=== PATIENT | female | born 1995 | race Caucasian/White ===

== ENCOUNTER 2017-12-30 03:41 | Inpatient (IN) | payer BC ==
[2017-12-30] MEDS ORDERED: Misoprostol 200 MCG Tab PO PRN (09:27)
[2017-12-30] MEDS ORDERED: Tranexamic Acid 1,000 MG in Sodium Chloride 0.9% 100 ML IV PRN (09:27)
[2017-12-30] MEDS ORDERED: Lidocaine 1% 50 ML MDV INJECT PRN (09:27)
[2017-12-30] MEDS ORDERED: Sodium Chloride 0.9% 10 ML Syringe FLUSH PRN (09:27)
[2017-12-30] MEDS ORDERED: Sodium Chloride 0.9% 2.5 ML Syringe FLUSH PRN (09:27)
[2017-12-30] MEDS ORDERED: Butorphanol 1 MG/ML SDV IVPUSH PRN (09:27)
[2017-12-30] MEDS ORDERED: Carboprost Tromethamine 250 MCG/1 ML Amp IM PRN (09:27)
[2017-12-30] MEDS ORDERED: Methylergonovine 0.2 MG/1 ML Amp IM PRN (09:27)
[2017-12-30] MEDS ORDERED: Nalbuphine 10 MG/1 ML Vial IVPUSH PRN (09:27)
[2017-12-30] MEDS ORDERED: Water For Irrigation,Sterile 1,000 ML Container IRR PRN (09:27)
[2017-12-30] MEDS ORDERED: Oxytocin/0.9 % Sodium Chloride 30 UNIT/500 ML BAG IV SCH ×2 (09:30→17:15)
--- NOTE | 2017-12-30 09:55 | PCM.LDHP ---
L&D History of Present Illness - General Date of Service: 12/30/17 Admit Problem/Dx: Patient Status Order with Admit Dx/Problem 12/30/17 03:54 Patient Status [ADT] Routine 12/30/17 09:27 Patient Status [ADT] Routine Admission Diagnosis/Problem Admission Diagnosis/Problem - planned Source of Information: Patient History Limitations: Reports: No Limitations - History of Present Illness Improves with: Reports: None Worsens with: Reports: None Associated Symptoms: Reports: N - Related Data Allergies/Adverse Reactions: Allergies Allergy/AdvReac Type Severity Reaction Status Date / Time No Known Allergies Allergy Verified 12/30/17 03:50 Home Medications: Home Meds Jur226/FA/Omega3/Dha/Fish Oil [ Gummies] 1 each PO 12/30/17 [History] H&P Review of Systems - Review of Systems: Review Of Systems: See Below General: Reports: No Symptoms HEENT: Reports: No Symptoms Pulmonary: Reports: No Symptoms Cardiovascular: Reports: No Symptoms Gastrointestinal: Reports: No Symptoms Genitourinary: Reports: No Symptoms Musculoskeletal: Reports: No Symptoms Skin: Reports: No Symptoms Psychiatric: Reports: No Symptoms Neurological: Reports: No Symptoms Hematologic/Lymphatic: Reports: No Symptoms Immunologic: Reports: No Symptoms L&D Exam - Exam Exam: See Below - Vital Signs Weight: 72.121 kg - OB Specific Fundal Height In cm: 37 Contraction Intensity: Moderate Movement: Active Heart Tones: Present Presentation: Vertex - Arnold Score Arnold Score Cervix Position: Anterior Arnold Score Consistency: Soft Arnold Score Effacement: 51-70% Arnold Score Dilation: > 5 cm Arnold Score Infant's Station: -2 Arnold Score Total: 10 - Exam General: Alert, Oriented HEENT: PERRLA, Conjunctiva Clear, EACs Clear, EOMI, Hearing Intact, Mucosa Moist & [place], Nares Patent, Normal Nasal Septum, Posterior Pharynx Clear, TMs Clear Neck: Supple, Trachea Midline Lungs: Clear to Auscultation, Normal Respiratory Effort Cardiovascular: Regular Rate, Regular Rhythm GI/Abdominal Exam: Normal Bowel Sounds, Soft, Non-Tender, No Organomegaly, No Distention, No Abnormal Bruit, No Mass, Pelvis Stable Rectal Exam: Normal Exam, Normal Rectal Tone Genitourinary: Normal external exam, Normal bimanual exam, Normal speculum exam Back Exam: Normal Inspection, Full Range of Motion Extremities: Normal Inspection, Normal Range of Motion, Non-Tender, No Pedal Edema, Normal Capillary Refill Skin: Warm, Dry, Intact Neurological: Cranial Nerves Intact, Reflexes Equal Bilateral Psychiatric: Alert, Normal Affect, Normal Mood Problem List Initiated/Reviewed/Updated: Yes Orders Last 24hrs: Active Orders 24 hr Category Date Time Status Patient Status [ADT] Routine ADT 12/30/17 09:27 Active Heart Tones [RC] CONTINUOUS Care 12/30/17 09:27 Active Non Stress Test [RC] PER UNIT ROUTINE Care 12/30/17 03:54 Active Non Stress Test [RC] PER UNIT ROUTINE Care 12/30/17 09:27 Active May Shower [RC] ASDIRECTED Care 12/30/17 09:27 Active Notify Provider [RC] PRN Care 12/30/17 09:27 Active Up ad Dipti [RC] ASDIRECTED Care 12/30/17 03:54 Active Up ad Dipti [RC] ASDIRECTED Care 12/30/17 09:27 Active Vaginal Exam [RC] Click to Edit Care 12/30/17 03:54 Active Vaginal Exam [RC] PRN Care 12/30/17 09:27 Active Vital Signs [RC] PER UNIT ROUTINE Care 12/30/17 03:54 Active Vital Signs [RC] PER UNIT ROUTINE Care 12/30/17 09:27 Active Clear Liquid Diet [DIET] Diet 12/30/17 Lunch Active CBC W/O DIFF,HEMOGRAM [HEME] Routine Lab 12/30/17 09:27 Ordered TYPE AND SCREEN [BBK] Routine Lab 12/30/17 09:27 Ordered Butorphanol [Stadol] Med 12/30/17 09:27 Active 1 mg IVPUSH Q1H PRN Carboprost Tromethamine [Hemabate DS] Med 12/30/17 09:27 Active 250 mcg IM ASDIRECTED PRN Lactated Ringers [Ringers, Lactated] 1,000 ml Med 12/30/17 09:30 Active IV ASDIRECTED Lidocaine 1% [Xylocaine 1%] Med 12/30/17 09:27 Active 50 ml INJECT .ONCE PRN Methylergonovine [Methergine] Med 12/30/17 09:27 Active 0.2 mg IM ASDIRECTED PRN Misoprostol [Cytotec] Med 12/30/17 09:27 Active 200 mcg PO .ONCE PRN Nalbuphine [Nubain] Med 12/30/17 09:27 Active 10 mg IVPUSH Q1H PRN Oxytocin/0.9 % Sodium Chloride [Oxytocin 30 Unit/500 ML Med 12/30/17 09:30 Active -NS] 30 unit in 500 ml IV TITRATE Sodium Chloride 0.9% [Saline Flush] Med 12/30/17 09:27 Active 10 ml FLUSH ASDIRECTED PRN Sodium Chloride 0.9% [Saline Flush] Med 12/30/17 09:27 Active 2.5 ml FLUSH ASDIRECTED PRN Tranexamic Acid [Cyklokapron] 1,000 mg Med 12/30/17 09:27 Active Sodium Chloride 0.9% [Normal Saline] 100 ml IV ONETIME Water For Irrigation,Sterile [Sterile Water for Med 12/30/17 09:27 Active Irrigation] 1,000 ml IRR ASDIRECTED PRN Scalp Electrode [WOMSER] Per Unit Routine Oth 12/30/17 09:27 Ordered Peripheral IV Insertion Adult [OM.PC] Routine Oth 12/30/17 09:27 Ordered Resuscitation Status Routine Resus Stat 12/30/17 03:54 Ordered Medication Orders Butorphanol Tartrate (Stadol) 1 mg IVPUSH Q1H PRN PRN Reason: Pain Carboprost Tromethamine (Hemabate Ds) 250 mcg IM ASDIRECTED PRN PRN Reason: Post Hemorrhage Tranexamic Acid 1,000 mg/ (Sodium Chloride) 110 mls @ 660 mls/hr IV ONETIME PRN PRN Reason: Bleeding Lactated Ringer's (Ringers, Lactated) 1,000 mls @ 150 mls/hr IV ASDIRECTED DON Oxytocin/Sodium Chloride (Oxytocin 30 Unit/500 Ml-Ns) 30 unit in 500 mls @ 500 mls/hr IV TITRATE DON Lidocaine HCl (Xylocaine 1%) 50 ml INJECT .ONCE PRN PRN Reason: Laceration repair Methylergonovine Maleate (Methergine) 0.2 mg IM ASDIRECTED PRN PRN Reason: Post Hemorrhage Misoprostol (Cytotec) 200 mcg PO .ONCE PRN PRN Reason: Post Hemorrhage Nalbuphine HCl (Nubain) 10 mg IVPUSH Q1H PRN PRN Reason: Pain (severe 7-10) Sodium Chloride (Saline Flush) 10 ml FLUSH ASDIRECTED PRN PRN Reason: Keep Vein Open Sodium Chloride (Saline Flush) 2.5 ml FLUSH ASDIRECTED PRN PRN Reason: Keep Vein Open Sterile Water (Sterile Water For Irrigation) 1,000 ml IRR ASDIRECTED PRN PRN Reason: delivery Assessment/Plan Comment:: IUP 39wks + in early active labor.
[2017-12-30] MEDS: Lactated Ringers 1,000 ML IV SCH ×2 (15:41→17:42)
[2017-12-30] MEDS ORDERED: fentaNYL 100 MCG/2 ML SDV ONE (15:44)
[2017-12-30] MEDS ORDERED: Bupivacaine 0.25% 10 ML SDV ONE ×2 (15:45→19:45)
--- NOTE | 2017-12-30 16:44 | PCM.PREANE ---
Preanesthetic Assessment - Anesthesia/Transfusion/Family Hx Anesthesia History: Prior Anesthesia Without Reaction Family History of Anesthesia Reaction: No Transfusion History: No Prior Transfusion(s) - Review of Systems General: No Symptoms Pulmonary: No Symptoms Cardiovascular: No Symptoms Gastrointestinal: No Symptoms Neurological: No Symptoms Other: Reports: None - Physical Assessment NPO Status Date: 12/30/17 NPO Status Time: 16:00 (Clear Liquids) Pulse: 114 O2 Sat by Pulse Oximetry: 99 Respiratory Rate: 20 Blood Pressure: 134/86 Height: 1.57 m Weight: 72.121 kg ASA Class: 2 Mental Status: Alert & Oriented x3 Airway Class: Mallampati = 1 Dentition: Reports: Normal Dentition ROM/Head Extension: Full Lungs: Clear to Auscultation Cardiovascular: Regular Rate (. Requests epidural, discussed, ? answered, understands risks and benefits. Accepts. Permit signed) - Lab Values: Laboratory Last Values WBC 14.59 K/uL (4.0-11.0) H 12/30/17 09:44 RBC 4.09 M/uL (4.30-5.90) L 12/30/17 09:44 Hgb 11.0 g/dL (12.0-16.0) L 12/30/17 09:44 Hct 33.5 % (36.0-46.0) L 12/30/17 09:44 MCV 81.9 fL (80.0-98.0) 12/30/17 09:44 MCH 26.9 pg (27.0-32.0) L 12/30/17 09:44 MCHC 32.8 g/dL (31.0-37.0) 12/30/17 09:44 RDW Std Deviation 40.8 fl (28.0-62.0) 12/30/17 09:44 RDW Coeff of Chantel 14 % (11.0-15.0) 12/30/17 09:44 Plt Count 263 K/uL (150-400) 12/30/17 09:44 MPV 11.30 fL (7.40-12.00) 12/30/17 09:44 Nucleated RBC % 0.0 /100WBC 12/30/17 09:44 Nucleated RBCs # 0 K/uL 12/30/17 09:44 Blood Type O POSITIVE 12/30/17 09:44 Antibody Screen NEGATIVE 12/30/17 09:44 - Allergies Allergies/Adverse Reactions: Allergies Allergy/AdvReac Type Severity Reaction Status Date / Time No Known Allergies Allergy Verified 12/30/17 03:50 PreAnesthesia Questionnaire Gastrointestinal History: Reports: GERD Psychiatric History: Reports: Anxiety, Depression - Past Surgical History HEENT Surgical History: Reports: Oral Surgery - SUBSTANCE USE Smoking Status *Q: Never Smoker Second Hand Smoke Exposure: No - HOME MEDS Home Medications: Home Meds [id number]/FA/Omega3/Dha/Fish Oil [ Gummies] 1 each PO 12/30/17 [History] - CURRENT (IN HOUSE) MEDS Current Meds: Current Medications Butorphanol Tartrate (Stadol) 1 mg IVPUSH Q1H PRN PRN Reason: Pain Carboprost Tromethamine (Hemabate Ds) 250 mcg IM ASDIRECTED PRN PRN Reason: Post Hemorrhage Tranexamic Acid 1,000 mg/ (Sodium Chloride) 110 mls @ 660 mls/hr IV ONETIME PRN PRN Reason: Bleeding Lactated Ringer's (Ringers, Lactated) 1,000 mls @ 150 mls/hr IV ASDIRECTED DON Oxytocin/Sodium Chloride (Oxytocin 30 Unit/500 Ml-Ns) 30 unit in 500 mls @ 500 mls/hr IV TITRATE DON Lidocaine HCl (Xylocaine 1%) 50 ml INJECT .ONCE PRN PRN Reason: Laceration repair Methylergonovine Maleate (Methergine) 0.2 mg IM ASDIRECTED PRN PRN Reason: Post Hemorrhage Misoprostol (Cytotec) 200 mcg PO .ONCE PRN PRN Reason: Post Hemorrhage Nalbuphine HCl (Nubain) 10 mg IVPUSH Q1H PRN PRN Reason: Pain (severe 7-10) Sodium Chloride (Saline Flush) 10 ml FLUSH ASDIRECTED PRN PRN Reason: Keep Vein Open Sodium Chloride (Saline Flush) 2.5 ml FLUSH ASDIRECTED PRN PRN Reason: Keep Vein Open Sterile Water (Sterile Water For Irrigation) 1,000 ml IRR ASDIRECTED PRN PRN Reason: delivery Discontinued Medications Bupivacaine HCl (Sensorcaine-Mpf 0.25%) Confirm Administered Dose 10 ml .ROUTE .STK-MED ONE Stop: 12/30/17 15:46 Fentanyl (Sublimaze) Confirm Administered Dose 100 mcg .ROUTE .STK-MED ONE Stop: 12/30/17 15:45 Fentanyl/Bupivacaine HCl (Hmlbiymv-Poqka-Ry 2 Mcg/Ml-0.125%) Confirm Administered Dose 100 mls @ as directed EP .STK-MED ONE Stop: 12/30/17 15:45
[2017-12-30] MEDS ORDERED: Terbutaline 1 MG/ML SDV SUBCUT PRN (17:03)
--- NOTE | 2017-12-30 17:12 | PCM.PRNOTE ---
- Free Text/Narrative Note: 22 y/o requests labor epidural. Dilated with active contractions. Discussed, ? answered. Wishes to procede. Procedure uneventful. Prep: X3 with betadine Skin Local: 4 ml 1% Lidocaine @ L3-4 Needle: 17g touhy 16:05 Space: ID'd via JESSIKA with air/NaCl 16:07 Catheter to 9 cm without issues. 16:08 Test dose: 4 ml 1.5% Lidocaine with 1:200k epi 16:11 TEST NEGATIVE Occlusive dressing applied. Bolus dose: Bupivicaine 0.25% 6ml + Fentanyl 100 mcg Continuous infusion Bupivicaine 0.125% + Fentanyl 1 mcg/ml @ 8ml/hr/6ml bolus q12m/28ml max/hr Significant decrease in discomfort by 16:30. No problems noted post
--- NOTE | 2017-12-30 20:35 | PCM.SN ---
- Free Text/Narrative Note: Called to OB for Epidural occlusion. Catheter checked-patent. Filter patent. No tubing kinks. Reloaded cassette. Bolus now functioning. Increased pain due to down time. Bupivicaine 0.25% 4ml bolus. Pain decreased. No problems post.
[2017-12-30] MEDS ORDERED: Docusate Sodium 100 MG Cap PO PRN (23:20)
[2017-12-30] MEDS ORDERED: Witch Hazel Medicated Pads 40/Jar TOP PRN (23:20)
[2017-12-30] MEDS ORDERED: Benzocaine/Menthol 20%-0.5% Spray 78 GM Cannister TOP PRN (23:20)
[2017-12-30] MEDS ORDERED: Acetaminophen 500 MG Tab PO PRN ×2 (23:20)
[2017-12-30] MEDS ORDERED: Ibuprofen 400 MG Tab PO PRN (23:20)
[2017-12-30] MEDS ORDERED: Bisacodyl 10 MG Supp RECTAL PRN (23:20)
--- NOTE | 2017-12-30 23:50 | OR ---
SURGEON: Mumtaz Skaggs MD DATE OF PROCEDURE: Ms. Jessica Guajardo is a 22-year-old patient. She is primigravida. She is followed in our office in this , she is primarily by Cari Noe CNM. She had no complication prenatally. Her GBS status was negative. The patient is admitted in active labor. At the time of admission, she was 5 cm, 80% vertex, and with bulging bag of water. The patient had regular contraction. heart rate was category I. She had artificial rupture of the membrane by me at 3:30 in the afternoon of 12/30/2017, clear fluid. The patient had epidural anesthesia for labor analgesia. The patient continued to progress through labor without any problem. She was able to accomplish normal spontaneous vaginal delivery of a male fetus. scores reported to be 8 and 9 and the weight . The placenta delivered spontaneous, complete, and intact. The patient had a second-degree perineal laceration. After infiltrating the area with 1% xylocaine, the laceration was repaired with 3-0 Vicryl in layer without any problem. Estimated blood loss was 350 mL to 400 mL. There was no complication in labor or in the . heart rate was category 1 through the entire process of labor. BRISSA / [id number] /[id number]
[2017-12-31] MEDS: Ibuprofen 800 MG Tab PO PRN ×3 (00:18→18:52)
[2017-12-31] MEDS ORDERED: Ondansetron 4 MG/2 ML SDV IVPUSH ONE (01:09)
--- NOTE | 2017-12-31 10:01 | PCM.PNPP ---
- General Info Date of Service: 12/31/17 Functional Status: Reports: Pain Controlled - Review of Systems General: Reports: No Symptoms HEENT: Reports: No Symptoms Pulmonary: Reports: No Symptoms Cardiovascular: Reports: No Symptoms Gastrointestinal: Reports: No Symptoms Genitourinary: Reports: No Symptoms Musculoskeletal: Reports: No Symptoms Skin: Reports: No Symptoms Neurological: Reports: No Symptoms Psychiatric: Reports: No Symptoms - General Info Date of Service: 12/31/17 - Patient Data Vital Signs - Most Recent: Last Vital Signs Temp 36.9 C 12/31/17 07:28 Pulse 111 H 12/31/17 07:28 Resp 16 12/31/17 07:28 BP 116/82 12/31/17 07:28 Pulse Ox 94 L 12/31/17 07:28 Weight - Most Recent: 72.121 kg I&O - Last 24 Hours: Intake & Output 12/30/17 12/31/17 12/31/17 22:59 06:59 14:59 Intake Total 500 Balance 500 Lab Results - Last 24 Hours: Laboratory Results - last 24 hr 12/30/17 12/30/17 12/31/17 Range/Units 09:44 09:44 06:00 WBC 14.59 H (4.0-11.0) K/uL RBC 4.09 L (4.30-5.90) M/uL Hgb 11.0 L 10.4 L (12.0-16.0) g/dL Hct 33.5 L 32.3 L (36.0-46.0) % MCV 81.9 (80.0-98.0) fL MCH 26.9 L (27.0-32.0) pg MCHC 32.8 (31.0-37.0) g/dL RDW Std Deviation 40.8 (28.0-62.0) fl RDW Coeff of Chantel 14 (11.0-15.0) % Plt Count 263 (150-400) K/uL MPV 11.30 (7.40-12.00) fL Nucleated RBC % 0.0 /100WBC Nucleated RBCs # 0 K/uL Blood Type O POSITIVE Antibody Screen NEGATIVE Med Orders - Current: Current Medications Acetaminophen (Tylenol Extra Strength) 500 mg PO Q4H PRN PRN Reason: Pain Acetaminophen (Tylenol Extra Strength) 1,000 mg PO Q4H PRN PRN Reason: Pain Benzocaine/Menthol (Dermoplast Pain Relief 20%-0.5% Sherman) 78 gm TOP ASDIRECTED PRN PRN Reason: Perineal Comfort Measure Bisacodyl (Dulcolax) 10 mg RECTAL .ONCE PRN PRN Reason: Constipation Butorphanol Tartrate (Stadol) 1 mg IVPUSH Q1H PRN PRN Reason: Pain Carboprost Tromethamine (Hemabate Ds) 250 mcg IM ASDIRECTED PRN PRN Reason: Post Hemorrhage Docusate Sodium (Colace) 100 mg PO BID PRN PRN Reason: Constipation Emollient Ointment (Lansinoh Hpa) 0 gm TOP ASDIRECTED PRN PRN Reason: Sore Nipples Tranexamic Acid 1,000 mg/ (Sodium Chloride) 110 mls @ 660 mls/hr IV ONETIME PRN PRN Reason: Bleeding Lactated Ringer's (Ringers, Lactated) 1,000 mls @ 150 mls/hr IV ASDIRECTED DON Last Admin: 12/30/17 17:42 Dose: 500 mls/hr Oxytocin/Sodium Chloride (Oxytocin 30 Unit/500 Ml-Ns) 30 unit in 500 mls @ 500 mls/hr IV TITRATE DON Oxytocin/Sodium Chloride (Oxytocin 30 Unit/500 Ml-Ns) 30 unit in 500 mls @ 2 mls/hr IV TITRATE DON; Protocol Last Titration: 12/30/17 22:14 Dose: 8 munits/min, 8 mls/hr Ibuprofen (Motrin) 400 mg PO Q4H PRN PRN Reason: Pain Ibuprofen (Motrin) 800 mg PO Q6H PRN PRN Reason: Pain Last Admin: 12/31/17 00:18 Dose: 800 mg Lidocaine HCl (Xylocaine 1%) 50 ml INJECT .ONCE PRN PRN Reason: Laceration repair Last Admin: 12/30/17 23:12 Dose: 50 ml Methylergonovine Maleate (Methergine) 0.2 mg IM ASDIRECTED PRN PRN Reason: Post Hemorrhage Misoprostol (Cytotec) 200 mcg PO .ONCE PRN PRN Reason: Post Hemorrhage Nalbuphine HCl (Nubain) 10 mg IVPUSH Q1H PRN PRN Reason: Pain (severe 7-10) Oxycodone HCl (Oxycodone) 5 mg PO Q2H PRN PRN Reason: Pain Sodium Chloride (Saline Flush) 10 ml FLUSH ASDIRECTED PRN PRN Reason: Keep Vein Open Sodium Chloride (Saline Flush) 2.5 ml FLUSH ASDIRECTED PRN PRN Reason: Keep Vein Open Sterile Water (Sterile Water For Irrigation) 1,000 ml IRR ASDIRECTED PRN PRN Reason: delivery Terbutaline Sulfate (Brethine) 0.25 mg SUBCUT ASDIRECTED PRN PRN Reason: Tacysystole Witch Bruna (Tucks) 1 pad TOP ASDIRECTED PRN PRN Reason: comfort care Discontinued Medications Bupivacaine HCl (Sensorcaine-Mpf 0.25%) Confirm Administered Dose 10 ml .ROUTE .STK-MED ONE Stop: 12/30/17 15:46 Last Admin: 12/30/17 20:19 Dose: Not Given Bupivacaine HCl (Sensorcaine-Mpf 0.25%) Confirm Administered Dose 10 ml .ROUTE .STK-MED ONE Stop: 12/30/17 19:46 Last Admin: 12/30/17 20:20 Dose: Not Given Fentanyl (Sublimaze) Confirm Administered Dose 100 mcg .ROUTE .STK-MED ONE Stop: 12/30/17 15:45 Last Admin: 12/30/17 20:19 Dose: Not Given Fentanyl/Bupivacaine HCl (Rwsqpfmq-Ddrwt-Px 2 Mcg/Ml-0.125%) Confirm Administered Dose 100 mls @ as directed EP .STK-MED ONE Stop: 12/30/17 15:45 Last Admin: 12/30/17 20:19 Dose: Not Given Ondansetron HCl (Zofran) 4 mg IVPUSH ONETIME ONE Stop: 12/31/17 01:10 Last Admin: 12/31/17 01:20 Dose: 4 mg - Interaction Infant Disposition, : in Room with Family Infant Interaction: Holding Infant Feeding: Attempted ; Nursed Fair/Poor Support Person: , Mother, Friend - Recovery Exam Fundal Tone: Firm Fundal Level: At Umbilicus Fundal Placement: Midline Lochia Amount: Small Lochia Color: Rubra/Red Perineum Description: Intact, Minimal Bruising/Swelling Episiotomy/Laceration: Approximated Urinary Elimination: Other (see below) Other Urinary Elimination, : due to void - Exam General: Alert, Oriented HEENT: Pupils Equal Neck: Supple Lungs: Clear to Auscultation, Normal Respiratory Effort Cardiovascular: Regular Rate, Regular Rhythm GI/Abdominal Exam: Normal Bowel Sounds, Soft, Non-Tender, No Organomegaly, No Distention, No Abnormal Bruit, No Mass, Pelvis Stable Extremities: Normal Inspection, Normal Range of Motion, Non-Tender, No Pedal Edema, Normal Capillary Refill Skin: Warm, Dry, Intact Wound/Incisions: Healing Well Neurological: No New Focal Deficit Psy/Mental Status: Alert, Normal Affect, Normal Mood - Problem List Review Problem List Initiated/Reviewed/Updated: Yes - My Orders Last 24 Hours: My Active Orders 12/30/17 09:27 May Shower [RC] ASDIRECTED Notify Provider [RC] PRN Up ad Dipti [RC] ASDIRECTED Vital Signs [RC] PER UNIT ROUTINE Butorphanol [Stadol] 1 mg IVPUSH Q1H PRN Carboprost Tromethamine [Hemabate DS] 250 mcg IM ASDIRECTED PRN Lidocaine 1% [Xylocaine 1%] 50 ml INJECT .ONCE PRN Methylergonovine [Methergine] 0.2 mg IM ASDIRECTED PRN Misoprostol [Cytotec] 200 mcg PO .ONCE PRN Nalbuphine [Nubain] 10 mg IVPUSH Q1H PRN Sodium Chloride 0.9% [Saline Flush] 10 ml FLUSH ASDIRECTED PRN Sodium Chloride 0.9% [Saline Flush] 2.5 ml FLUSH ASDIRECTED PRN Tranexamic Acid [Cyklokapron] 1,000 mg Sodium Chloride 0.9% [Normal Saline] 100 ml IV ONETIME Water For Irrigation,Sterile [Sterile Water for Irrigation] 1,000 ml IRR ASDIRECTED PRN Scalp Electrode [WOMSER] Per Unit Routine Peripheral IV Insertion Adult [OM.PC] Routine 12/30/17 09:30 Lactated Ringers [Ringers, Lactated] 1,000 ml IV ASDIRECTED Oxytocin/0.9 % Sodium Chloride [Oxytocin 30 Unit/500 ML-NS] 30 unit in 500 ml IV TITRATE 12/30/17 17:03 Notify Provider [RC] PRN Vital Signs [RC] PER UNIT ROUTINE Terbutaline [Brethine] 0.25 mg SUBCUT ASDIRECTED PRN 12/30/17 17:15 Oxytocin/0.9 % Sodium Chloride [Oxytocin 30 Unit/500 ML-NS] 30 unit in 500 ml IV TITRATE Medication Administration Instruction [OM.PC] Q3H 12/30/17 23:20 Patient Status [ADT] Routine May Shower [RC] ASDIRECTED Up ad Dipti [RC] ASDIRECTED Vital Signs [RC] PER UNIT ROUTINE Acetaminophen [Tylenol Extra Strength] 1,000 mg PO Q4H PRN Acetaminophen [Tylenol Extra Strength] 500 mg PO Q4H PRN Benzocaine/Menthol [Dermoplast Pain Relief 20%-0.5% Sherman] 78 gm TOP ASDIRECTED PRN Bisacodyl [Dulcolax] 10 mg RECTAL .ONCE PRN Docusate Sodium [Colace] 100 mg PO BID PRN Ibuprofen [Motrin] 400 mg PO Q4H PRN Ibuprofen [Motrin] 800 mg PO Q6H PRN Lanolin [Lansinoh HPA] See Dose Instructions TOP ASDIRECTED PRN Witch Bruna [Tucks] 1 pad TOP ASDIRECTED PRN oxyCODONE 5 mg PO Q2H PRN Assess Lochia [WOMSER] Per Unit Routine Assess Uterine Involution [WOMSER] Per Unit Routine Peripheral IV Discontinue [OM.PC] Routine 12/31/17 Breakfast Regular Diet [DIET] - Assessment Assessment:: Doing well - Plan Plan:: IUP 39wks + in early active labor.
[2017-12-31] MEDS: Lanolin 100% Cream 7 GM Tube TOP PRN (10:06)
--- NOTE | 2017-12-31 13:24 | PCM48HPAN ---
Post Anesthesia Note - EVALUATION WITHIN 48HRS OF ANESTHETIC Vital Signs in Normal Range: Yes Patient Participated in Evaluation: Yes Respiratory Function Stable: Yes Airway Patent: Yes Cardiovascular Function Stable: Yes Hydration Status Stable: Yes Pain Control Satisfactory: Yes Nausea and Vomiting Control Satisfactory: Yes Pulse Rate: 76 Resp Rate: 16 Blood Pressure: 122/72 - COMMENTS/OBSERVATIONS Free Text/Narrative:: No problems noted post. Doing well.
[2017-12-31] MEDS ORDERED: Bupivacaine 0.25% 10 ML SDV ONE (18:14)
[2017-12-31] MEDS: oxyCODONE 5 MG Tab PO PRN (19:58)
[2018-01-01] MEDS: Lanolin 100% Cream 7 GM Tube TOP PRN (00:49)
[2018-01-01] MEDS: oxyCODONE 5 MG Tab PO PRN ×3 (00:51→12:58)
--- NOTE | 2018-01-01 08:22 | PCM.DCSUM1 ---
Discharge Summary - Hospital Course Free Text/Narrative:: Discharge home with infant. Follow up in 6 weeks or sooner if needed. - Discharge Data Discharge Date: 01/01/18 Discharge Disposition: Home, Self-Care 01 Condition: Good - Discharge Diagnosis/Problem(s) (1) Supervision of normal IUP (intrauterine ) in primigravida SNOMED Code(s): 98108036, 392956306, [id number], 409998770 ICD Code: Z34.00 - ENCNTR FOR SUPRVSN OF NORMAL FIRST , UNSP TRIMESTER Status: Acute Priority: High Current Visit: Yes Qualifiers: Trimester: third trimester Qualified Code(s): Z34.03 - Encounter for supervision of normal first , third trimester (2) (normal spontaneous vaginal delivery) SNOMED Code(s): 18676932 ICD Code: O80 - ENCOUNTER FOR FULL-TERM UNCOMPLICATED DELIVERY Status: Acute Priority: High Current Visit: Yes - Patient Instructions Diet: Usual Diet as Tolerated Activity: As Tolerated, No Strenuous Activities, Rest and Relax Today Driving: May Drive Today Showering/Bathing: May Shower Wound/Incision Care: Keep Operative Site/Wound Site Clean and Dry Notify Provider of: Fever, Increased Pain, Swelling and Redness, Nausea and/or Vomiting Other/Special Instructions: Discharge home with . Follow up in 6 weeks or sooner if needed. - Discharge Plan Home Medications: Home Meds Tsn725/FA/Omega3/Dha/Fish Oil [ Gummies] 1 each PO 12/30/17 [History] - General Info Date of Service: 01/01/18 Admission Dx/Problem (Free Text: Patient Status Order with Admit Dx/Problem 12/30/17 03:54 Patient Status [ADT] Routine 12/30/17 09:27 Patient Status [ADT] Routine Admission Diagnosis/Problem Admission Diagnosis/Problem - planned Functional Status: Reports: Pain Controlled, Tolerating Diet, Ambulating, Urinating - Review of Systems General: Reports: No Symptoms HEENT: Reports: No Symptoms Pulmonary: Reports: No Symptoms Cardiovascular: Reports: No Symptoms Gastrointestinal: Reports: No Symptoms Genitourinary: Reports: No Symptoms Musculoskeletal: Reports: No Symptoms Skin: Reports: No Symptoms Neurological: Reports: No Symptoms Psychiatric: Reports: No Symptoms - Patient Data Vitals - Most Recent: Last Vital Signs Temp 36.6 C 01/01/18 05:00 Pulse 84 01/01/18 05:00 Resp 16 01/01/18 05:00 BP 118/78 01/01/18 05:00 Pulse Ox 98 01/01/18 05:00 Weight - Most Recent: 72.121 kg Med Orders - Current: Current Medications Acetaminophen (Tylenol Extra Strength) 500 mg PO Q4H PRN PRN Reason: Pain Last Admin: 01/01/18 00:50 Dose: 500 mg Acetaminophen (Tylenol Extra Strength) 1,000 mg PO Q4H PRN PRN Reason: Pain Benzocaine/Menthol (Dermoplast Pain Relief 20%-0.5% [place]) 78 gm TOP ASDIRECTED PRN PRN Reason: Perineal Comfort Measure Last Admin: 12/31/17 10:07 Dose: 1 spray Bisacodyl (Dulcolax) 10 mg RECTAL .ONCE PRN PRN Reason: Constipation Butorphanol Tartrate (Stadol) 1 mg IVPUSH Q1H PRN PRN Reason: Pain Carboprost Tromethamine (Hemabate Ds) 250 mcg IM ASDIRECTED PRN PRN Reason: Post Hemorrhage Docusate Sodium (Colace) 100 mg PO BID PRN PRN Reason: Constipation Emollient Ointment (Lansinoh Hpa) 0 gm TOP ASDIRECTED PRN PRN Reason: Sore Nipples Last Admin: 01/01/18 00:49 Dose: 1 applic Tranexamic Acid 1,000 mg/ (Sodium Chloride) 110 mls @ 660 mls/hr IV ONETIME PRN PRN Reason: Bleeding Lactated Ringer's (Ringers, Lactated) 1,000 mls @ 150 mls/hr IV ASDIRECTED DON Last Admin: 12/30/17 17:42 Dose: 500 mls/hr Oxytocin/Sodium Chloride (Oxytocin 30 Unit/500 Ml-Ns) 30 unit in 500 mls @ 500 mls/hr IV TITRATE DON Oxytocin/Sodium Chloride (Oxytocin 30 Unit/500 Ml-Ns) 30 unit in 500 mls @ 2 mls/hr IV TITRATE DON; Protocol Last Titration: 12/30/17 22:14 Dose: 8 munits/min, 8 mls/hr Ibuprofen (Motrin) 400 mg PO Q4H PRN PRN Reason: Pain Ibuprofen (Motrin) 800 mg PO Q6H PRN PRN Reason: Pain Last Admin: 12/31/17 18:52 Dose: 800 mg Lidocaine HCl (Xylocaine 1%) 50 ml INJECT .ONCE PRN PRN Reason: Laceration repair Last Admin: 12/30/17 23:12 Dose: 50 ml Methylergonovine Maleate (Methergine) 0.2 mg IM ASDIRECTED PRN PRN Reason: Post Hemorrhage Misoprostol (Cytotec) 200 mcg PO .ONCE PRN PRN Reason: Post Hemorrhage Nalbuphine HCl (Nubain) 10 mg IVPUSH Q1H PRN PRN Reason: Pain (severe 7-10) Oxycodone HCl (Oxycodone) 5 mg PO Q2H PRN PRN Reason: Pain Last Admin: 01/01/18 00:51 Dose: 5 mg Sodium Chloride (Saline Flush) 10 ml FLUSH ASDIRECTED PRN PRN Reason: Keep Vein Open Sodium Chloride (Saline Flush) 2.5 ml FLUSH ASDIRECTED PRN PRN Reason: Keep Vein Open Sterile Water (Sterile Water For Irrigation) 1,000 ml IRR ASDIRECTED PRN PRN Reason: delivery Terbutaline Sulfate (Brethine) 0.25 mg SUBCUT ASDIRECTED PRN PRN Reason: Tacysystole Witch Bruna (Mike) 1 pad TOP ASDIRECTED PRN PRN Reason: comfort care Last Admin: 12/31/17 10:08 Dose: 1 pad Discontinued Medications Bupivacaine HCl (Sensorcaine-Mpf 0.25%) Confirm Administered Dose 10 ml .ROUTE .STK-MED ONE Stop: 12/30/17 15:46 Last Admin: 12/30/17 20:19 Dose: Not Given Bupivacaine HCl (Sensorcaine-Mpf 0.25%) Confirm Administered Dose 10 ml .ROUTE .STK-MED ONE Stop: 12/30/17 19:46 Last Admin: 12/30/17 20:20 Dose: Not Given Bupivacaine HCl (Sensorcaine-Mpf 0.25%) Confirm Administered Dose 10 ml .ROUTE .STK-MED ONE Stop: 12/31/17 18:15 Fentanyl (Sublimaze) Confirm Administered Dose 100 mcg .ROUTE .STK-MED ONE Stop: 12/30/17 15:45 Last Admin: 12/30/17 20:19 Dose: Not Given Fentanyl/Bupivacaine HCl (Gqdsgsek-Ezznx-Fg 2 Mcg/Ml-0.125%) Confirm Administered Dose 100 mls @ as directed EP .STK-MED ONE Stop: 12/30/17 15:45 Last Admin: 12/30/17 20:19 Dose: Not Given Ondansetron HCl (Zofran) 4 mg IVPUSH ONETIME ONE Stop: 12/31/17 01:10 Last Admin: 12/31/17 01:20 Dose: 4 mg - Exam General: Reports: Alert, Oriented, Cooperative, No Acute Distress Lungs: Reports: Normal Respiratory Effort GI/Abdominal Exam: Normal Bowel Sounds, Soft, Non-Tender, No Organomegaly, No Distention, No Abnormal Bruit, No Mass, Pelvis Stable (Female) Exam: Vaginal Bleeding Rectal (Female) Exam: Deferred Back Exam: Reports: Normal Inspection, Full Range of Motion Extremities: Normal Inspection, Normal Range of Motion, Non-Tender, Normal Capillary Refill, Pedal Edema Skin: Reports: Warm, Dry, Intact Wound/Incisions: Reports: Healing Well Neurological: Reports: No New Focal Deficit, Normal Speech, Normal Tone Psy/Mental Status: Reports: Alert, Normal Affect, Normal Mood
[2018-01-01] MEDS: Ibuprofen 800 MG Tab PO PRN (09:27)
== END 2018-01-01 13:55 | disposition home or self-care (01) | DRG 560 ==
LOC: MW.OBCHECK 03:41 → MW.OB 03:44 → MW.OBCHECK 09:34 → MW.OB 10:23 → OBSVTOIN 23:05 → MW.OB 12-31 01:44
PROVIDERS: ADMIT Obstetrics & Gynecology; ATTEND Obstetrics & Gynecology
PROC: 10E0XZZ Delivery of Products of Conception, External Approach (ICD-10-PCS; principal; 2017-12-30)
PROC: 10907ZC Drainage of Amniotic Fluid, Therapeutic from Products of Conception, Via Natural or Artificial Opening (ICD-10-PCS; 2017-12-30)
PROC: 0KQM0ZZ Repair Perineum Muscle, Open Approach (ICD-10-PCS; 2017-12-30)
DX: O70.1 Second degree perineal laceration during delivery (principal); Z3A.39 39 weeks gestation of pregnancy; Z37.0 Single live birth
CPT/HCPCS: 36415; 51702; 59025; 59409; 85014; 85018; 85027; 86850; 86900; 86901; A9270-GY; J2405; J2590; J7120

== ENCOUNTER 2022-10-11 06:48 | Day surgery (SDC) | payer BC ==
[~2022-10-11 06:48] MED LIST: Albuterol 0.083% 2.5 MG/3 ML Neb Soln NEB PRN; HYDROmorphone 1 MG/ML Syringe IVPUSH PRN; Metoclopramide 10 MG/2 ML SDV IVPUSH PRN; Morphine 2 MG/ML SYRINGE IVPUSH PRN; Naloxone 0.4 MG/ML SDV IVPUSH PRN; Ondansetron 4 MG/2 ML SDV IVPUSH PRN; Scopolamine 1.5 MG Transdermal Patch TOP ONE; fentaNYL 50 MCG/ML SDV IVPUSH PRN
[2022-10-11] MEDS ORDERED: fentaNYL 250 MCG/5 ML SDV ONE (07:17)
[2022-10-11] MEDS ORDERED: Propofol 200 MG/20 ML SDV ONE (07:17)
[2022-10-11] MEDS ORDERED: Dexamethasone 4 MG/ML 5 ML MDV ONE (07:18)
[2022-10-11] MEDS ORDERED: Lidocaine 2% 5 ML SDV ONE (07:18)
[2022-10-11] MEDS ORDERED: Rocuronium Bromide 50 MG/5 ML Syringe ONE (07:18)
[2022-10-11] MEDS ORDERED: Ketorolac 30 MG/ML SDV ONE (07:18)
[2022-10-11] MEDS ORDERED: Ondansetron 4 MG/2 ML SDV ONE (07:18)
[2022-10-11] MEDS ORDERED: Magnesium Sulfate (4.06 MEQ/ML) 5 GM/10 ML SDV ONE (07:19)
[2022-10-11] MEDS ORDERED: Water For Injection, Sterile 20 ML ONE (07:19)
[2022-10-11] MEDS ORDERED: Bupivacaine 0.25% 30 ML SDV ONE (07:28)
[2022-10-11] MEDS ORDERED: Lactated Ringers 1,000 ML IV SCH (07:30)
[2022-10-11] MEDS ORDERED: Ropivacaine 0.5% 5 MG/ML 30 ML SDV ONE (07:31)
== END 2022-10-11 11:25 | disposition home or self-care (01) ==
LOC: MW.SDS 06:48
PROVIDERS: ATTEND Obstetrics & Gynecology
DX: N87.9 Dysplasia of cervix uteri, unspecified (principal); K21.9 Gastro-esophageal reflux disease without esophagitis; F41.9 Anxiety disorder, unspecified; F32.A Depression, unspecified; E66.9 Obesity, unspecified; N39.0 Urinary tract infection, site not specified; R73.03 Prediabetes; Z68.32 Body mass index [BMI] 32.0-32.9, adult; Z79.899 Other long term (current) drug therapy; Z98.890 Other specified postprocedural states; Z79.84 Long term (current) use of oral hypoglycemic drugs
CPT/HCPCS: 58662; A9270; J0131; J1100; J1885; J2405; J2704; J2795; J3010; J3475; J3490; J7030; J7120; 00840; 64488